=== PATIENT | female | born 1960 | race Caucasian/White ===

== ENCOUNTER 2016-09-19 13:10 | Emergency (ER) | payer BC, OTHER ==
[2016-09-19 13:19] VITALS: BP 135/61; PULSE 100; TEMP 98.7; BMI 36.0
[2016-09-19] MEDS ORDERED: ALBUTEROL SO4 2.5/IPRATROPIUM 0.5 INH SOL 3 ML VIAL.NEB. NEB ONE ×2 (13:42→13:46)
[2016-09-19] MEDS ORDERED: predniSONE 20 MG TABLET (UD) ONE (13:46)
--- NOTE | 2016-09-19 13:58 | PDOC ---
History of Present Illness - General Chief Complaint: Cold Symptoms Stated Complaint: COUGH, HEADACHE Time Seen by Provider: 09/19/16 13:28 History Source: Patient Exam Limitations: No Limitations - History of Present Illness Initial Comments: 09/19/16 13:54 56 yr female with c/o cough for 3 days no fever no chills. Pt denies vomiting no shortness of breath. Pt has history of asthma, bronchitis, DM, HTN. Pt taking OTC cough medicine with no relief. Severity: mild Past History - Past Medical History Allergies/Adverse Reactions: Allergies Allergy/AdvReac Type Severity Reaction Status Date / Time No Known Allergies Allergy Verified 09/19/16 13:19 Home Medications: Ambulatory Orders Albuterol Sulfate Inhaler - [Ventolin HFA Inhaler -] 1 - 2 inh IH QID #1 inhaler 07/01/12 Amlodipine Besylate [Norvasc -] 5 mg PO DAILY 07/01/12 Aspirin [ASA -] 81 mg PO DAILY 07/01/12 Lisinopril [Prinivil -] 40 mg PO DAILY 07/01/12 Metformin HCl [Glucophage] 1,000 mg PO BID 07/01/12 Insulin (Levemir) [Levemir Flexpen -] 20 units SQ HS 03/09/14 Benzonatate [Tessalon Perle -] 200 mg PO TID PRN #42 cap 09/19/16 Asthma: Yes Diabetes: Yes HTN: Yes - Surgical History Abdominal Surgery: Yes Cholecystectomy: Yes - Immunization History Immunization Up to Date: Yes - Psycho/Social/Smoking Cessation Hx Anxiety: No Suicidal Ideation: No Smoking Status: No Smoking History: Current some day smoker Number of Cigarettes Smoked Daily: 2 Information on smoking cessation initiated: No Hx Alcohol Use: Yes (SOCIAL) Drug/Substance Use Hx: No Substance Use Type: None Review of Systems - Review of Systems Able to Perform ROS?: Yes Is the patient limited Estonian proficient: No Constitutional: No: Symptoms Reported HEENTM: No: Symptoms Reported Respiratory: Yes: Symptoms reported, See HPI Cardiac (ROS): No: Symptoms Reported ABD/GI: No: Symptoms Reported *Physical Exam - Vital Signs Last Vital Signs Temp Pulse Resp BP Pulse Ox 98.7 F 100 H 20 135/61 98 09/19/16 13:16 09/19/16 13:16 09/19/16 13:16 09/19/16 13:16 09/19/16 13:16 - Physical Exam General Appearance: Yes: Nourished, Appropriately Dressed HEENT: positive: EOMI, ADDI, Normal ENT Inspection, TMs Normal, Pharynx Normal Neck: positive: Supple. negative: Tender Respiratory/Chest: positive: Chest Tender (anterior), Lungs Clear, Normal Breath Sounds, Other (pos cough non productive) Cardiovascular: positive: Regular Rhythm, Regular Rate, Tachycardia Gastrointestinal/Abdominal: positive: Normal Bowel Sounds, Soft Musculoskeletal: positive: Normal Inspection Extremity: positive: Normal Capillary Refill, Normal Inspection, Normal Range of Motion Integumentary: positive: Normal Color, Dry, Warm Neurologic: positive: Fully Oriented, Alert, Normal Mood/Affect, Normal Response , Motor Strength 08/20 ED Treatment Course - RADIOLOGY Radiology Studies Ordered: Category Date Time Status CHEST PA & LAT [RAD] Stat Radiology 09/19/16 13:42 Ordered - Medications Given in the ED: ED Medications Discontinued Medications Generic Name Dose Route Start Last Admin Trade Name Freq PRN Reason Stop Dose Admin Albuterol/Ipratropium 1 amp 09/19/16 13:42 09/19/16 13:50 Duoneb - NEB 09/19/16 13:43 1 amp ONCE ONE Administration Medical Decision Making - Medical Decision Making 09/19/16 14:56 cc: cough for 3 days no fever, non productive dry cough non toxic no wheezing will give duoneb for coughing, pt uses nebulizer at home did one albuterol at 6am today cxr to r/o pneumonia 09/19/16 15:22 pt improved after second nebulizer. pt refused prednisone. *DC/Admit/Observation/Transfer Diagnosis at time of Disposition: Bronchitis - Discharge Dispostion Disposition: HOME Condition at time of disposition: Good - Prescriptions Prescriptions: Benzonatate [Tessalon Perle -] 200 mg PO TID PRN #42 cap PRN Reason: Cough - Referrals Referrals: Les Centeno MD [Primary Care Provider] - - Patient Instructions Additional Instructions: drink at least 2 liters of water a day monitor your blood sugar use your inhaler as directed take the Tessalon perles as directed for coughing follow with your doctor in 1-2 days if no improvement
[2016-09-19] MEDS ORDERED: ALBUTEROL SO4 0.083% IH SOL 2.5 MG/3 ML VIAL.NEB. NEB ONE ×2 (14:40→14:41)
== END 2016-09-19 15:21 | disposition home or self-care (01) ==
LOC: JERFT 13:10
PROC: 3E0F7GC Introduction of Other Therapeutic Substance into Respiratory Tract, Via Natural or Artificial Opening (ICD-10-PCS; principal; 2016-09-19)
PROC: 3E0F7GC Introduction of Other Therapeutic Substance into Respiratory Tract, Via Natural or Artificial Opening (ICD-10-PCS; 2016-09-19)
DX: J20.9 Acute bronchitis, unspecified (principal)
CPT/HCPCS: 71020-TC; 99281-25

== ENCOUNTER 2017-08-03 19:19 | Emergency (ER) | payer OTHER ==
[2017-08-03 19:24] VITALS: BP 138/72; PULSE 80; TEMP 98; BMI 34.9
[2017-08-03] MEDS ORDERED: traMADol HCL 50 MG TABLET PO ONE (19:56)
[2017-08-03] MEDS ORDERED: traMADol HCL 50 MG TABLET ONE (19:58)
--- NOTE | 2017-08-03 20:04 | PDOC ---
History of Present Illness - General Chief Complaint: Back Pain Stated Complaint: PAIN Time Seen by Provider: 08/03/17 19:52 History Source: Patient - History of Present Illness Occurred: reports: last week Severity: reports: moderate Pain Location: reports: back Past History - Past Medical History Allergies/Adverse Reactions: Allergies Allergy/AdvReac Type Severity Reaction Status Date / Time No Known Allergies Allergy Verified 08/03/17 19:22 Home Medications: Ambulatory Orders Albuterol Sulfate Inhaler - [Ventolin HFA Inhaler -] 1 - 2 inh IH QID #1 inhaler 07/01/12 Amlodipine Besylate [Norvasc -] 5 mg PO DAILY 07/01/12 Aspirin [ASA -] 81 mg PO DAILY 07/01/12 Lisinopril [Prinivil -] 40 mg PO DAILY 07/01/12 metFORMIN HCL [Glucophage] 1,000 mg PO BID 07/01/12 Insulin (Levemir) [Levemir Flexpen -] 20 units SQ HS 03/09/14 Tramadol HCl 50 mg PO Q6H #15 tablet MDD 200mg 08/03/17 Asthma: Yes COPD: No Diabetes: Yes HTN: Yes - Surgical History Abdominal Surgery: Yes Cholecystectomy: Yes - Immunization History Immunization Up to Date: Yes - Suicide/Smoking/Psychosocial Hx Smoking Status: No Smoking History: Never smoked Have you smoked in the past 12 months: No Number of Cigarettes Smoked Daily: 2 Information on smoking cessation initiated: No Hx Alcohol Use: No Drug/Substance Use Hx: No Substance Use Type: None Review of Systems - Review of Systems Constitutional: No: Unexplained wgt Loss ABD/GI: No: Nausea, Vomiting, Abdominal cramping : No: Dysuria Musculoskeletal: Yes: Back Pain. No: Neck Pain Neurological: No: Numbness, Tingling, Weakness *Physical Exam - Vital Signs Last Vital Signs Temp Pulse Resp BP Pulse Ox 98.0 F 80 16 138/72 100 08/03/17 19:22 08/03/17 19:22 08/03/17 19:22 08/03/17 19:22 08/03/17 19:22 - Physical Exam General Appearance: Yes: Appropriately Dressed. No: Apparent Distress HEENT: positive: Normal Voice Neck: positive: Supple Respiratory/Chest: negative: Respiratory Distress Gastrointestinal/Abdominal: positive: Soft. negative: Tender Musculoskeletal: negative: CVA Tenderness, Vertebral Tenderness (to R lower back ) Integumentary: positive: Dry, Warm Neurologic: positive: Fully Oriented, Alert, Normal Mood/Affect, Motor Strength 5/5 (neg SLR, bearing weight w/ cane) Medical Decision Making - Medical Decision Making 08/03/17 19:56 57-year-old female, history of hypertension, diabetes, here with right back pain radiating to right leg times one week. Seen in ED for same 5 days ago and prescribed naproxen and Flexeril, but states medication is not relieving pain. States pain is achy in nature, mostly constant and worse with movement and weight bearing. No lower extremity sensory changes, weakness, bowel or bladder incontinence or saddle anesthesia. No recent trauma. No dysuria, nausea, vomiting, fever or chills. Patient well-appearing and stable with no red flags at this time. Possibly sciatica. DC with pain control and encourage PMD follow -up for possible outpatient MRI if symptoms persist *DC/Admit/Observation/Transfer Diagnosis at time of Disposition: Lower back pain Qualifiers: Chronicity: acute Back pain laterality: right Sciatica presence: unspecified whether sciatica present Qualified Code(s): M54.5 - Low back pain - Discharge Dispostion Disposition: HOME Condition at time of disposition: Good - Prescriptions Prescriptions: Tramadol HCl 50 mg PO Q6H #15 tablet MDD 200mg - Referrals Referrals: Les Centeno MD [Primary Care Provider] - - Patient Instructions Printed Discharge Instructions: Sciatica Additional Instructions: Take medication as prescribed and follow-up with your primary doctor next week - Post Discharge Activity
== END 2017-08-03 20:21 | disposition home or self-care (01) ==
LOC: JERFT 19:19
DX: M54.5 Low back pain (principal); I10 Essential (primary) hypertension; E11.9 Type 2 diabetes mellitus without complications; Z79.4 Long term (current) use of insulin; Z79.84 Long term (current) use of oral hypoglycemic drugs; J45.909 Unspecified asthma, uncomplicated; Z79.82 Long term (current) use of aspirin
CPT/HCPCS: 99281-25

== ENCOUNTER 2021-03-25 13:49 | Emergency (ER) | payer OTHER ==
[2021-03-25 15:34] VITALS: BP 114/79; PULSE 77; TEMP 98.1; BMI 35.7
[2021-03-25] MEDS ORDERED: KETOROLAC TROMETHAMINE 60 MG/2 ML VIAL IM ONE (16:13)
[2021-03-25] MEDS ORDERED: KETOROLAC TROMETHAMINE 60 MG/2 ML VIAL ONE (16:16)
== END 2021-03-25 16:33 | disposition home or self-care (01) ==
LOC: JERFT 13:49
PROC: 3E023GC Introduction of Other Therapeutic Substance into Muscle, Percutaneous Approach (ICD-10-PCS; principal; 2021-03-25)
DX: H60.501 Unspecified acute noninfective otitis externa, right ear (principal)
CPT/HCPCS: 99284-25